=== PATIENT | female | born 1945 | race Caucasian/White ===

== ENCOUNTER 2016-04-25 03:55 | Emergency (ER) | payer BC, OTHER ==
--- NOTE | 2016-04-25 04:29 | EDPHY ---
H & P Stated Complaint: cough and chills since 2/3 HPI/ROS: HPI CHIEF COMPLAINT: Cough, sore throat, chills HISTORY OF PRESENT ILLNESS: This patient very pleasant 70-year-old female, significant past medical history for depression and anxiety, she does not smoke , she presents to the emergency room at 4 o'clock in the morning for a cough that started yesterday. Patient tells me she has had somewhat of her sore throat she has had a cough that is bronchitic in nature. She denies productivity of the cough. She has had had some chills but no recorded fever. She denies any diarrhea, nausea or vomiting. Denies chest pain. She tells me that she could not sleep last night due to ongoing cough. She does not feel acutely short of breath. She has no history of coronary artery disease or pulmonary embolism. No history of underlying lung disease. Past Medical History: Anxiety and depression, hypertension Social History: Denies use of drugs alcohol tobacco products Family History: Noncontributory ROS REVIEW OF SYSTEMS: A comprehensive 10 point review of systems is otherwise negative aside from elements mentioned in the history of present illness. Exam Constitutional triage nursing summary reviewed, vital signs reviewed, awake/ alert. Eyes normal conjunctivae and sclera, EOMI, PERRLA. HENT normal inspection, atraumatic, moist mucus membranes, no epistaxis, neck supple/ no meningismus, no raccoon eyes. Respiratory clear to auscultation bilaterally, however when she coughs she has a faint wheezing and bronchitic sounding cough, no crackles. Cardiovascular rate normal, regular rhythm, no murmur, no edema, distal pulses normal. Gastrointestinal soft, non-tender, no rebound, no guarding, normal bowel sounds, no distension, no pulsatile mass. Genitourinary no CVA tenderness. Musculoskeletal no midline vertebral tenderness, full range of motion, no calf swelling, no tenderness of extremities, no meningismus, good pulses, neurovascularly intact. Skin pink, warm, & dry, no rash, skin atraumatic. Neurologic awake, alert and oriented x 3, AAOx3, moves all 4 extremities equally, motor intact, sensory intact, CN II-XII intact, normal cerebellar, normal vision, normal speech. Psychiatric normal mood/affect. Heme/Lymph/Immune no lymphadenopathy. Differential Diagnosis: This includes but is not limited to in a particular order, bronchitis, upper respiratory tract infection, viral pneumonia, bacterial pneumonia, CHF Medical Decision Making: This patient will have a two view chest x-ray to rule out pneumonia should be given a DuoNeb breathing treatment here will re- evaluate. She appears very well nontoxic noted to not be hypoxic or febrile. Re-evaluation: 0501: re-evaluation at this time currently this patient is getting a DuoNeb breathing treatment. ED x-ray chest two view: this is negative for acute cardiopulmonary disease specifically I do not appreciate pneumothorax, focal pneumonia. There is some airway thickening. Image interpreted by myself. This patient will benefit from albuterol inhaler, steroids prednisone for 5 days and cough medicine guaifenesin decongestion. She appears to have bronchitis. There is no pneumonia on her chest x-ray. She appears well nontoxic it is noted she is not hypoxic or afebrile. She feels much better after a DuoNeb breathing treatment. 0530: patient is resting comfortably clear breath sounds after DuoNeb breathing treatment she does feel better. X-ray reviewed shows no pneumonia. Prescription for azithromycin, prednisone, albuterol and guaifenesin she does understand return to the ER she develops any worsening symptoms questions or concerns. Source: Patient - Personal History Current Tetanus/Diphtheria Vaccine: Unsure Current Tetanus Diphtheria and Acellular Pertussis (TDAP): Unsure - Medical/Surgical History Hx Asthma: No Hx Chronic Respiratory Disease: No Hx Diabetes: No Hx Cardiac Disease: No Hx Renal Disease: No Hx Cirrhosis: No Hx Alcoholism: No Hx HIV/AIDS: No Hx Splenectomy or Spleen Trauma: No Other PMH: depression, anxiety - Social History Smoking Status: Former smoker Constitutional: Initial Vital Signs Temperature (C) 36.8 C 04/25/16 03:57 Heart Rate 117 H 04/25/16 03:57 Blood Pressure 143/89 H 04/25/16 03:57 O2 Sat (%) 97 04/25/16 03:57 Allergies/Adverse Reactions: Sulfa (Sulfonamide Antibiotics) Allergy (Verified 04/25/16 04:03) Home Medications: Medication Instructions Recorded AZITHROMYCIN [Z-PACK] 250 mg PO DAILY #6 tab 04/25/16 Albuterol [Proventil Inhaler HFA 1 - 2 puffs IH Q4H #1 mdi 04/25/16 (*)] CLONAZEPAM 04/25/16 Carvedilol 04/25/16 Guaifenesin [Guaifenesin ER] 600 mg PO BID #14 tab.er.12h 04/25/16 Paxil 04/25/16 predniSONE 60 mg PO DAILY #15 tab 04/25/16 Medical Decision Making - Data Points Medications Given: Discontinued Medications Albuterol/Ipratropium (Duoneb) 3 ml IH EDNOW ONE Stop: 04/25/16 04:34 Last Admin: 04/25/16 05:01 Dose: 3 ml Departure - Departure Disposition: Home, Routine, Self-Care Clinical Impression: Acute bronchitis Qualifiers: Bronchitis organism: other organism Qualifier Code: (J20.8) Acute bronchitis due to other specified organisms Condition: Good Instructions: Acute Bronchitis (ED) Additional Instructions: 1. Stay well-hydrated drink lots of fluids 2. return emergency room if you have worsening trouble breathing questions or concerns. 3. Please take her albuterol 2 puffs every 2-4 hours as needed. 4.Take prednisone for the next 5 days. Referrals: Gutierrez Whitehead MD [Primary Care Provider] - As per Instructions Prescriptions: Guaifenesin [Guaifenesin ER] 600 mg PO BID #14 tab.er.12h Albuterol [Proventil Inhaler HFA (*)] 1 - 2 puffs IH Q4H #1 mdi AZITHROMYCIN [Z-PACK] 250 mg PO DAILY #6 tab predniSONE 60 mg PO DAILY #15 tab
[2016-04-25] MEDS ORDERED: IPRATROPIUM/ALBUTEROL 3 ML DEYVIAL IH ONE (04:33)
[2016-04-25] MEDS ORDERED: predniSONE 20 MG TAB PO ONE (05:31)
[2016-04-25 06:09] VITALS: BP 142/70; PULSE 114; RESP 18; TEMP 99.3; O2SAT 91
--- NOTE | 2016-04-25 08:07 | DX ---
Chest, PA and Lateral History: Cough and congestion Comparison: March 03, 2005 Findings: Perihilar bronchial wall thickening and mildly prominent lung volumes, without infiltrate o r consolidation, are consistent with airways disease. Heart size is normal. There is new tortuosity o f the descending thoracic aorta. I suspect there is a small stable hiatal hernia present. There is no adenopathy or mass lesion. There is no pleural effusion or pneumothorax. Bones are unremarkable for age. Impression: 1. Airways disease. No pneumonia. 2. New thoracic aortic tortuosity.? Chronic hypertension
== END 2016-04-25 06:09 | disposition home or self-care (01) ==
DX: J20.8 Acute bronchitis due to other specified organisms (principal); I10 Essential (primary) hypertension; Z87.891 Personal history of nicotine dependence

== ENCOUNTER 2016-07-01 06:31 | Inpatient (IN) | payer BC, OTHER ==
--- NOTE | 2016-07-01 07:17 | EDPHY ---
H & P Stated Complaint: SOB, bronchitis not improving Source: Patient Exam Limitations: No limitations - Personal History Current Tetanus Diphtheria and Acellular Pertussis (TDAP): Unsure - Medical/Surgical History Hx Asthma: No Hx Chronic Respiratory Disease: No Hx Diabetes: No Hx Cardiac Disease: No Hx Renal Disease: No Hx Cirrhosis: No Hx Alcoholism: No Hx HIV/AIDS: No Hx Splenectomy or Spleen Trauma: No Other PMH: depression, anxiety - Social History Smoking Status: Former smoker Time Seen by Provider: 07/01/16 06:43 HPI/ROS: HPI The patient presents with shortness of breath which has been present for the last 1 month which is worse with exertion. She was diagnosed with bronchitis about 2 months ago and was sick for about 3 weeks with a cough. Her symptoms improved, however for the last 1 month she has felt short of breath, she experiences this when she goes up a flight of stairs or when she changes her clothes. She does not have any dyspnea when she walks. This is occasionally associated with a cough. She has not had any chest pain. She was seen by her primary care doctor last week and her shortness of breath was thought to be due to deconditioning, she was instructed to exercise more and is being evaluated for home oxygen. She does not have any orthopnea, PND. She has mild lower extremity edema REVIEW OF SYSTEMS Constitutional: No fever, no chills. Eyes: No discharge. ENT: No sore throat. Cardiovascular: No chest pain, no palpitations. Respiratory: See HPI Gastrointestinal: No abdominal pain, no vomiting. Genitourinary: No hematuria. Musculoskeletal: No back pain. Skin: No rashes. Neurological: No headache. PMHx: Recent bronchitis, some sort of valvular heart disease in 2004, possibly mitral valve regurgitation, which improved on its own, though required 5 day ICU stay Soc Hx: Nonsmoker PHYSICAL General Appearance: Alert, no distress Eyes: Pupils equal and round no pallor or injection ENT, Mouth: Mucous membranes moist Respiratory: There are no retractions, lungs are clear to auscultation Cardiovascular: Regular rate and rhythm Gastrointestinal: Abdomen is soft and non-tender, no masses, bowel sounds normal Neurological: A&O, moves all extremities Skin: Warm and dry, no rashes Musculoskeletal: Neck is supple non tender Extremities: symmetrical, full range of motion, trace lower extremity edema Psychiatric: Patient is oriented X 3, there is no agitation (Riguzzi,Elvia) Constitutional: Initial Vital Signs Temperature (C) 36.8 C 07/01/16 06:34 Heart Rate 106 H 07/01/16 06:34 Respiratory Rate 20 07/01/16 06:34 Blood Pressure 124/82 H 07/01/16 06:34 O2 Sat (%) 92 07/01/16 06:34 O2 Delivery Mode Room Air O2 (L/minute) 2 Allergies/Adverse Reactions: Gadolinium-Containing Contrast Medi Allergy (Verified 07/01/16 08:54) Sulfa (Sulfonamide Antibiotics) Allergy (Verified 07/01/16 06:34) Home Medications: Medication Instructions Recorded PARoxetine HCL [Paxil 20mg (*)] 50 mg PO DAILY 07/01/16 clonazePAM [Klonopin (*)] 0.5 mg PO BID PRN 07/01/16 Medical Decision Making - Diagnostics Imaging: Imaging Impressions Chest X-Ray 07/01/16 07:08 Impression: Peribronchial thickening in the could be related to fluid overload or bronchitis. Chest/Thorax CTA 07/01/16 08:17 Impression: 1. No visible pulmonary embolus. 2. Small pleural effusions with interlobular septal thickening and basilar ground-glass opacities, most likely related to pulmonary edema/CHF. Superimposed pneumonia is considered unlikely. Recommend follow up CT in 3 months to document resolution. 3. Aneurysmal dilatation of the ascending aorta without dissection. 4. 2 cm exophytic left thyroid nodule. Thyroid ultrasound is recommended for further evaluation. 5. Nonvisualization of the left vertebral artery, suspicious for occlusion. 6. Mildly prominent right hilar lymph nodes, which may be reactive. Attention is recommended on follow up. 7. Nonobstructing 4 mm left renal stone. 8. Additional findings as above. Findings discussed with Kamryn Zazueta on July 01, 2016 at 10:34 a.m. ED Course/Re-evaluation: 8:20 a.m.- The patient has been stable. Chest x-ray shows bronchitis versus mild fluid overload. Her labs demonstrate elevated BNP as well as elevated D-dimer. I have ordered a CT scan of her chest and will consult with her cardiology group. On further evaluation, the patient says that she used to be on medication for CHF but took herself off of it several years ago and never had symptoms so did not re-initiate medications. 8:40 a.m.- I have signed out the case to the oncoming provider Dr. Zazueta pending CT results and cardiology consultation. (Elvia Guajardo) Differential Diagnosis: This is a 70-year-old female with history of recent bronchitis, remote history of cardiomyopathy who presents with dyspnea on exertion for the last 1 month. On exam, she is well-appearing, she has normal vital signs, her lungs sound clear, she does not have a murmur. Differential diagnosis includes pneumonia, pleural effusion, CHF, pulmonary embolism. (Elvia Guajardo) Care Turn Over: I assumed care of this patient from Dr. Rebecca cai at 8:30 a.m.. I interviewed and examined the patient. She reports a 3-4 week history of progressively worsening dyspnea on exertion. She lives in an apartment that has 3 flights up. Month ago she could run up the stairs, she now takes about 20 minutes to go from bottom to top. She has not had chest pain. She was diagnosed with bronchitis a couple of months ago and was treated with a nebulizer, cough medication, and short course of steroids. She thought that she had recovered but then developed shortness of breath. She saw her primary care physician, Dr. Gutierrez Whitehead, last week and was advised to increase her activity level with the thought that she might be deconditioned from her recent bronchitis. She does have a history of mitral valve regurgitation that was reportedly diagnosed during a hospitalization at [facility]. She has seen Dr. Lee Harrison in the past. Additional history that has been provided by [facility] Is that her hospitalization at [facility] was apparently for nonischemic cardiomyopathy. At 1 point she was taking Cozaar, Aldactone, and carvedilol. She tells me that she has not taken Cozaar or Aldactone for a few years. She was taking carvedilol, once daily, up until about a month ago, when she ran out and was unable to refill the prescription. She thinks that her worsening shortness of breath dates from the time that she discontinued her carvedilol. At the time that I assumed her care a CT angiogram of her chest is pending, her D-dimer is elevated, as is BNP. She reports of contrast allergy to the nursing staff. Apparently she had an urticarial reaction during his CT scan in the past. She will be premedicated. Troponin is normal. CT angiogram of the chest was performed and reported to me by Dr. Johnston. There is no PE seen. There are bilateral pleural effusions. There is some incidental in findings including nonvisualization of the left vertebral artery, 4.4 cm ascending aortic aneurysm, no dissection. Please see formal CT report. Echocardiogram will be performed in the emergency department. Parish Voss from [facility] plans to check in with the patient once this exam is completed. I spoke with Parish Voss from [facility]. Preliminary review of her echocardiogram shows that her ejection fraction is markedly diminished. Awaiting formal report. Hospitalization is recommended. She will be admitted to the hospitalist service for treatment of heart failure, resumption of medications, and additional treatment and evaluation as needed. (Kamryn Zazueta ) - Data Points Laboratory Results: Laboratory Results 07/01/16 07:30 07/01/16 07:30 07/01/16 07/01/16 07/01/16 07:30 07:30 07:30 WBC RBC Hgb Hct MCV MCH MCHC RDW Plt Count MPV Neut % (Auto) Lymph % (Auto) Tama % (Auto) Eos % (Auto) Baso % (Auto) Nucleat RBC Rel Count Absolute Neuts (auto) Absolute Lymphs (auto) Absolute Monos (auto) Absolute Eos (auto) Absolute Basos (auto) Absolute Nucleated RBC Immature Gran % Immature Gran # D-Dimer 1.19 ug/mLFEU H ug/mLFEU (0.00-0.50) Sodium 143 mEq/L mEq/L (134-144) Potassium 3.9 mEq/L mEq/L (3.5-5.2) Chloride 110 mEq/L mEq/L (97-110) Carbon Dioxide 23 mEq/l mEq/l (22-31) Anion Gap 10 mEq/L mEq/L (8-16) BUN 23 mg/dL mg/dL (7-23) Creatinine 0.8 mg/dL mg/dL (0.6-1.0) Estimated GFR > 60 Glucose 100 mg/dL mg/dL (70-100) Calcium 8.9 mg/dL mg/dL (8.5-10.4) Phosphorus Pending Magnesium Pending Troponin I 0.029 ng/mL ng/mL (0-0.034) NT-Pro-B Natriuret Pep 3190 pg/mL H pg/mL (0-125) 07/01/16 07:30 WBC 9.68 10^3/uL H 10^3/uL (3.80-9.50) RBC 4.20 10^6/uL 10^6/uL (4.18-5.33) Hgb 12.1 g/dL L g/dL (12.6-16.3) Hct 37.1 % L % (38.0-47.0) MCV 88.3 fL fL (81.5-99.8) MCH 28.8 pg pg (27.9-34.1) MCHC 32.6 g/dL g/dL (32.4-36.7) RDW 14.0 % % (11.5-15.2) Plt Count 270 10^3/uL 10^3/uL (150-400) MPV 10.8 fL fL (8.7-11.7) Neut % (Auto) 58.7 % % (39.3-74.2) Lymph % (Auto) 33.8 % % (15.0-45.0) Tama % (Auto) 5.4 % % (4.5-13.0) Eos % (Auto) 1.4 % % (0.6-7.6) Baso % (Auto) 0.4 % % (0.3-1.7) Nucleat RBC Rel Count 0.0 % % (0.0-0.2) Absolute Neuts (auto) 5.68 10^3/uL 10^3/uL (1.70-6.50) Absolute Lymphs (auto) 3.27 10^3/uL H 10^3/uL (1.00-3.00) Absolute Monos (auto) 0.52 10^3/uL 10^3/uL (0.30-0.80) Absolute Eos (auto) 0.14 10^3/uL 10^3/uL (0.03-0.40) Absolute Basos (auto) 0.04 10^3/uL 10^3/uL (0.02-0.10) Absolute Nucleated RBC 0.00 10^3/uL 10^3/uL (0-0.01) Immature Gran % 0.3 % % (0.0-1.1) Immature Gran # 0.03 10^3/uL 10^3/uL (0.00-0.10) D-Dimer Sodium Potassium Chloride Carbon Dioxide Anion Gap BUN Creatinine Estimated GFR Glucose Calcium Phosphorus Magnesium Troponin I NT-Pro-B Natriuret Pep Medications Given: Discontinued Medications Aspirin (Aspirin) 325 mg PO EDNOW ONE Stop: 07/01/16 11:51 Last Admin: 07/01/16 12:00 Dose: 325 mg Carvedilol (Coreg) 3.125 mg PO EDNOW ONE Stop: 07/01/16 11:49 Last Admin: 07/01/16 12:40 Dose: 3.125 mg Diphenhydramine HCl (Benadryl Injection) 25 mg IVP EDNOW ONE Stop: 07/01/16 09:00 Last Admin: 07/01/16 09:05 Dose: 25 mg Famotidine (Pepcid) 20 mg IVP EDNOW ONE Stop: 07/01/16 09:00 Last Admin: 07/01/16 09:05 Dose: 20 mg Furosemide (Lasix Injection) 40 mg IVP EDNOW ONE Stop: 07/01/16 11:49 Last Admin: 07/01/16 12:00 Dose: 40 mg Methylprednisolone Sodium Succinate (Solu-Medrol) 125 mg IVP EDNOW ONE Stop: 07/01/16 09:00 Last Admin: 07/01/16 09:05 Dose: 125 mg Potassium Chloride (Klor-Con) 20 meq PO ONCE ONE Stop: 07/01/16 11:52 Last Admin: 07/01/16 13:39 Dose: 20 meq Departure - Departure Disposition: [facility] Inpatient Acute Clinical Impression: Congestive heart failure Qualifiers: Congestive heart failure type: unspecified congestive heart failure type Congestive heart failure chronicity: unspecified congestive heart failure chronicity Qualified Code(s): I50.9 - Heart failure, unspecified Condition: Good
[2016-07-01 07:41] LABS: % IMMATURE GRANULYOCYTES 0.3 % (0.0-1.1); ABSOLUTE IMMATURE GRANULOCYTES 0.03 10^3/uL (0.00-0.10); ADD DIFF? NO; ADD MORPH? NO; ADD SCAN? NO; ATYPICAL LYMPHOCYTE FLAG 10 (0-99); FRAGMENT RBC FLAG 0 (0-99); HEMATOCRIT 37.1 % (38.0-47.0); HEMOGLOBIN 12.1 g/dL (12.6-16.3); LEFT SHIFT FLG 0 (0-99); LIPEMIA HEMOLYSIS FLAG 80 (0-99); MEAN CELL HEMOGLOBIN 28.8 pg (27.9-34.1); MEAN CELL HEMOGLOBIN CONCENTR. 32.6 g/dL (32.4-36.7); MEAN CELL VOLUME 88.3 fL (81.5-99.8); MEAN PLATELET VOLUME 10.8 fL (8.7-11.7); PLATELET CLUMPS FLAG 0 (0-99); PLATELET COUNT 270 10^3/uL (150-400)
[2016-07-01 08:00] LABS: ANION GAP 10 mEq/L (8-16); CALCIUM 8.9 mg/dL (8.5-10.4); CARBON DIOXIDE 23 mEq/l (22-31); CHLORIDE 110 mEq/L (97-110); CREATININE 0.8 mg/dL (0.6-1.0); GLOMERULAR FILTRATION RATE > 60; GLUCOSE 100 mg/dL (70-100); POTASSIUM 3.9 mEq/L (3.5-5.2); SODIUM 143 mEq/L (134-144)
[2016-07-01 08:13] LABS: TROPONIN I 0.029 ng/mL (0-0.034)
[2016-07-01] MEDS ORDERED: IOPAMIDOL (ISOVUE 370) 100 ML BTL IV ONE (08:31)
[2016-07-01] MEDS ORDERED: FAMOTIDINE 20 MG/2 ML SDV IVP ONE (08:59)
[2016-07-01] MEDS ORDERED: methylPREDNISolone SOD SUCC 125 MG/2 ML VIAL IVP ONE (08:59)
--- NOTE | 2016-07-01 09:05 | CPEKG ---
Heart Rate: 96 RR Interval: 625 P-R Interval: 152 QRSD Interval: 92 QT Interval: 396 QTC Interval: 501 P [place]: 48 QRS [place]: 27 T Wave [place]: 81 EKG Severity - ABNORMAL ECG - EKG Impression: SINUS RHYTHM EKG Impression: ATRIAL PREMATURE COMPLEX EKG Impression: PROBABLE LEFT ATRIAL ABNORMALITY EKG Impression: PROBABLE LEFT VENTRICULAR HYPERTROPHY EKG Impression: BORDERLINE PROLONGED QT INTERVAL Electronically Signed By: Kamryn Zazueta 01-Jul-2016 15:20:00
--- NOTE | 2016-07-01 11:45 | ECHO ---
[id number] + + [address] : : [place] [address] : : [phone] + + Adult Echocardiographic Report + -------+ :Name: REID NGUYEN LStudy Date: 07/01/2016 10:55 AM : : Hospital Admission Number: [id number] Locat ion: ER: :: 1945 Gender: Female Height: 69 in : :Age: 70 yrs Race: WH Weight: 173 l b : :Reason For Study: New REYNA/h/o mitral regurgitation : : BSA: 1.9 mete rs2 : + -------+ MMode/2D Measurements \T\ Calculations LVIDd: 6.0 cm EDV(Teich): 180.3 ml MV Diam: 3.5 cm Ao root diam: 3.5 cm LA dimension: 4.5 cm LVOT diam: 2.1 cmLVLd ap4: 8.5 cm SV(MOD-sp4): LVOT area: EDV(MOD-sp4): 23.0 ml 3.5 cm2 92.0 ml LVLs ap4: 7.3 cm ESV(MOD-sp4): 69.0 ml EF(MOD-sp4): 25.0 % Normal Measurement Values: + + :LVIDd (3.5-5.7cm) IVSd (0.6-1.1cm) LVPWd (0.6-1.1cm) Aortic Root (2.0-3.7cm)Left Atrium (1.5-4.0cm): :LV Vol(d) (76-115ml) LV Vol(s) (29-48ml) Ejec Fraction (50-65%)PV Zana (0.6- 1.2m/s) TV Zana (0.4-1.0m/s) : :MV E Zana (0.8-1.0m/s)MV A Zana (0.3-1.0m/s)LVOT Zana (0.7-1.2m/s) Asc Ao Zana ( 0.9-1.8m/s) : + + Doppler Measurements \T\ Calculations MV E max zana: MV V2 max: Ao V2 max: LV V1 max: 155.0 cm/sec 145.0 cm/sec 120.0 cm/sec 67.7 cm/sec MV A max zana: MV max P.4 mmHg Ao max P.8 mmHgLV V1 max P.0 cm/sec MV V2 mean: Ao mean P.8 mmHg MV E/A: 1.4 104.0 cm/sec 3.0 mmHg LV V1 mean PG: MV mean P.0 mmHgAo V2 mean: 1.0 mmHg MV V2 VTI: 28.9 cm 83.9 cm/sec LV V1 mean: MV area (1 diam): Ao V2 VTI: 20.6 cm 44.5 cm/sec 9.6 cm2 KAITLIN(I,D): 2.4 cm2 LV V1 VTI: 14.1 cm MVA(VTI): 1.7 cm2 KAITLIN(V,D): 2.0 cm2 MV Flow area(1diam): 9.6 cm2 MR max zana: MR(RF 1 diam): SV(MV 1 diam): RF(MV,Ao)(1 diam): 537.0 cm/sec 15.2 % 278.1 ml 0.29 MR max PG: SI(MV 1 diam): RF(MV,LVOT) 115.3 mmHg 143.2 ml/m2 (1diam): 0.82 SV(LVOT): 48.8 ml Left Ventricle The left ventricle is mildly dilated. There is normal left ventricular wall thickness. There is Doppler evidence for diastolic dysfunction. Ejection Fraction = 30-35%%. Septal motion is consistent with conduction abnormality. There is moderate to severe global hypokinesis of the left ventricle. Right Ventricle The right ventricle is normal in size and function. Atria The left atrium is moderately dilated. Right atrial size is normal. The interatrial septum is intact with no evidence for an atrial septal defect. Mitral Valve There is mild mitral annular calcification. There is no evidence of mitral valve prolapse. There is no mitral valve stenosis. There is moderate to severe mitral regurgitation. Tricuspid Valve Normal tricuspid valve. There is trace tricuspid regurgitation. Aortic Valve The aortic valve opens well. There is no aortic stenosis. Trace aortic regurgitation. Pulmonic Valve The pulmonic valve is not well visualized. There is no pulmonic valvular regurgitation. Great Vessels The aortic root is normal size. Pericardium/Pleural Trivial anterior pericardial effusion. Conclusion A complete two-dimensional transthoracic echocardiogram was performed (2D, M-mode, Doppler and color flow Doppler). Compared to the previous echo of 10/01, the EF has decreased significantly. There is Doppler evidence for diastolic dysfunction. There is moderate to severe global hypokinesis of the left ventricle. The left ventricle is mildly dilated. Septal motion is consistent with conduction abnormality. The left atrium is moderately dilated. There is mild mitral annular calcification. There is moderate to severe mitral regurgitation. There is trace tricuspid regurgitation. Trace aortic regurgitation. Trivial anterior pericardial effusion Ejection Fraction = 30-35%%. Final Reading Physician: Alejandro Diaz signed on 07/01/2016 11:44 AM Ordering Physician: STAN PARISH Performed By: Maria Isabel Gutierrez RDCS
[2016-07-01] MEDS ORDERED: FUROSEMIDE 40 MG/4 ML VIAL IVP ONE (11:48)
[2016-07-01] MEDS ORDERED: CARVEDILOL 3.125 MG TAB PO ONE (11:48)
[2016-07-01] MEDS ORDERED: ASPIRIN 325 MG TAB PO ONE (11:50)
[2016-07-01] MEDS ORDERED: POTASSIUM CL 20 MEQ TAB PO ONE (11:51)
[2016-07-01] MEDS ORDERED: FUROSEMIDE 40 MG/4 ML VIAL ONE (11:53)
[2016-07-01] MEDS ORDERED: ASPIRIN 325 MG TAB ONE (11:53)
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
[2016-07-01] MEDS ORDERED: ALBUTEROL 3 ML DEYVIAL IH PRN (14:23)
[2016-07-01] MEDS ORDERED: PROTOCOL POTASSIUM 1 DOSE MISC PRN (14:25)
[2016-07-01] MEDS ORDERED: PROTOCOL K PHOSPHATE 1 DOSE IV PRN (14:25)
[2016-07-01] MEDS ORDERED: PROTOCOL MAGNESIUM 1 DOSE IV PRN (14:25)
[2016-07-01] MEDS: FUROSEMIDE 20 MG/2 ML VIAL IVP SCH (15:47)
[2016-07-01] MEDS: LISINOPRIL 5 MG TAB PO SCH (15:47)
[2016-07-01] MEDS: IPRATROPIUM/ALBUTEROL 3 ML DEYVIAL IH SCH (16:34)
[2016-07-01] MEDS: CARVEDILOL 6.25 MG TAB PO SCH (18:05)
[2016-07-01] MEDS: PARoxetine HCL 20 MG TAB PO SCH ×2 (18:05→18:17)
[2016-07-01] MEDS: clonazePAM 0.5 MG TAB PO PRN (18:05)
[2016-07-01 20:29] LABS: POTASSIUM 4.7 mEq/L (3.5-5.2)
[2016-07-01 20:44] LABS: TROPONIN I 0.015 ng/mL (0-0.034)
[2016-07-02] MEDS: IPRATROPIUM/ALBUTEROL 3 ML DEYVIAL IH SCH ×3 (00:51→11:28)
[2016-07-02 04:45] LABS: ALANINE AMINOTRANSFERASE 24 IU/L (9-52); ALBUMIN 3.6 g/dL (3.5-5.0); ALKALINE PHOSPHATASE 63 IU/L (38-126); ANION GAP 10 mEq/L (8-16); ASPARTATE AMINOTRANSFERASE 19 IU/L (14-46); BILIRUBIN,TOTAL 0.4 mg/dL (0.1-1.4); CALCIUM 9.4 mg/dL (8.5-10.4); CARBON DIOXIDE 25 mEq/l (22-31); CHLORIDE 107 mEq/L (97-110); CHOLESTEROL 152 mg/dL (140-220); CHOLESTEROL/HDL RATIO 2.98 RATIO (1.00-4.44); GLOMERULAR FILTRATION RATE 55; GLUCOSE 147 mg/dL (70-100); HIGH DENSITY LIPOPROTEIN 51 mg/dL (40-85); LDL/HDL RATIO 1.65 RATIO (1.00-3.22); LOW DENSITY LIPOPROTEIN 84 mg/dL (80-100); MAGNESIUM 2.1 mg/dL (1.6-2.3); NON-HIGH DENSITY LIPOPROTEIN 101 mg/dL (90-129); POTASSIUM 4.1 mEq/L (3.5-5.2); SODIUM 142 mEq/L (134-144); TOTAL PROTEIN 6.4 g/dL (6.3-8.2); TRIGLYCERIDE 87 mg/dL (35-135); VERY LOW DENSITY LIPOPROTEINS 17 mg/dL (8-25)
[2016-07-02] MEDS: ASPIRIN 81 MG CHEWABLE TAB PO SCH (08:32)
[2016-07-02] MEDS: PARoxetine HCL 20 MG TAB PO SCH (08:32)
[2016-07-02] MEDS: LISINOPRIL 5 MG TAB PO SCH (08:32)
[2016-07-02] MEDS: CARVEDILOL 6.25 MG TAB PO SCH ×3 (08:35→18:23)
[2016-07-02] MEDS: FUROSEMIDE 20 MG/2 ML VIAL IVP SCH ×2 (08:35→15:08)
--- NOTE | 2016-07-02 08:52 | CPEKG ---
Heart Rate: 99 RR Interval: 606 P-R Interval: 148 QRSD Interval: 96 QT Interval: 376 QTC Interval: 483 P Andale: 66 QRS Andale: 39 T Wave Andale: 140 EKG Severity - ABNORMAL ECG - EKG Impression: SINUS TACHYCARDIA EKG Impression: VENTRICULAR PREMATURE COMPLEX EKG Impression: LEFT ATRIAL ABNORMALITY EKG Impression: LVH WITH SECONDARY REPOLARIZATION ABNORMALITY Electronically Signed By: Jabier Pablo 02-Jul-2016 15:10:56
[2016-07-02] MEDS ORDERED: REGADENOSON 0.4 MG/5 ML SYR IVP ONE (09:42)
--- NOTE | 2016-07-02 11:01 | HOSPPROG ---
Hospitalist Progress Note Assessment/Plan: Acute hypoxemic respiratory failure secondary to acute on chronic combined systolic / diastolic heart failure - Now >92 on RA. EF 30-35% with global LV hypokinesis. Mary Jane this am, results pending -Continue IV Lasix, likely change to oral tomorrow as BUN on the rise -Follow I&O's, daily weights, daily BMP -Cont ASA, BB, VIET Mitral regurgitation - cards following Thyroid nodule - TSH low, but nl T3, T4. Discussed with pt, needs outpt u/s. Depression / Anxiety - cont outpt meds TBI with baseline cognitive deficit Full code Dispo - cont inpt for ongoing diuresis Subjective: breathing is improved. continues to endorse orthopnea. reports 20 lb weight gain over past 12 months. No CP. Objective: Vital Signs Temp Pulse Resp BP Pulse Ox 36.6 C 96 17 116/67 94 07/02/16 08:00 07/02/16 08:00 07/02/16 08:00 07/02/16 08:00 07/02/16 08:00 Laboratory Results 07/02/16 04:10 07/01/16 07/02/16 07/03/16 05:59 05:59 05:59 Intake Total 1100 Output Total 925 Balance 175 - Physical Exam Constitutional: no apparent distress Eyes: PERRL Ears, Nose, Mouth, Throat: moist mucous membranes Cardiovascular: regular rate and rhythym, JVD (4-6 cm JVD, +hepatojugular reflex ) Respiratory: no respiratory distress, clear to auscultation Gastrointestinal: normoactive bowel sounds, soft, non-tender abdomen Skin: warm Musculoskeletal: full muscle strength Neurologic: AAOx3 Psychiatric: interacting appropriately, anxious ICD10 Worksheet Patient Problems: Problems Problem Status Onset Congestive heart failure Acute
[2016-07-02] MEDS: clonazePAM 0.5 MG TAB PO PRN (16:15)
[2016-07-02] MEDS ORDERED: IPRATROPIUM/ALBUTEROL 3 ML DEYVIAL IH PRN (16:56)
[2016-07-03] MEDS: clonazePAM 0.5 MG TAB PO PRN ×2 (00:35→15:11)
[2016-07-03 05:05] LABS: ANION GAP 9 mEq/L (8-16); CALCIUM 8.7 mg/dL (8.5-10.4); CARBON DIOXIDE 25 mEq/l (22-31); CHLORIDE 107 mEq/L (97-110); CREATININE 0.9 mg/dL (0.6-1.0); GLOMERULAR FILTRATION RATE > 60; GLUCOSE 83 mg/dL (70-100); MAGNESIUM 2.1 mg/dL (1.6-2.3); POTASSIUM 4.4 mEq/L (3.5-5.2); SODIUM 141 mEq/L (134-144)
[2016-07-03] MEDS: CARVEDILOL 6.25 MG TAB PO SCH ×2 (09:26→18:16)
[2016-07-03] MEDS: ASPIRIN 81 MG CHEWABLE TAB PO SCH (09:27)
[2016-07-03] MEDS: LISINOPRIL 5 MG TAB PO SCH (09:27)
[2016-07-03] MEDS: PARoxetine HCL 20 MG TAB PO SCH (09:27)
[2016-07-03] MEDS: FUROSEMIDE 20 MG/2 ML VIAL IVP SCH ×2 (09:27→16:04)
--- NOTE | 2016-07-03 09:59 | HOSPPROG ---
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 EF 30-35% with global LV hypokinesis. BNP trending down, clinically volume status improved, but not much change in weight or I&O's. -Continue IV Lasix, add Diamox per cards -Follow I&O's, daily weights, daily BMP -Cont ASA, BB, VIET -plan for home O2, at least nocturnally Abnormal nuclear stress test - discussed case with cardiology team, no angiogram indicated unless she develops symptoms c/w ACS. Mitral regurgitation - cards following Thyroid nodule - TSH low, but nl T3, T4. Discussed with pt, needs outpt u/s. Depression / Anxiety - cont outpt meds TBI with baseline cognitive deficit Full code Dispo - cont inpt for ongoing diuresis, PT/OT evals today Subjective: Pt feels better, still feels puffy in her hands and abdomen. No CP or SOB at rest. Still a bit orthopneic, though improved. Objective: Vital Signs Temp Pulse Resp BP Pulse Ox 36.5 C 85 20 111/70 95 07/03/16 07:43 07/03/16 09:26 07/03/16 07:43 07/03/16 07:43 07/03/16 07:43 Laboratory Results 07/03/16 03:54 07/02/16 07/03/16 07/04/16 05:59 05:59 05:59 Intake Total 1100 1200 Output Total 925 1425 Balance 175 -225 - Physical Exam Constitutional: no apparent distress Eyes: PERRL Ears, Nose, Mouth, Throat: moist mucous membranes Cardiovascular: regular rate and rhythym Respiratory: no respiratory distress, clear to auscultation Gastrointestinal: normoactive bowel sounds, soft, non-tender abdomen Skin: warm Musculoskeletal: full muscle strength Neurologic: AAOx3 Psychiatric: interacting appropriately, anxious ICD10 Worksheet Patient Problems: Problems Problem Status Onset Congestive heart failure Acute
--- NOTE | 2016-07-03 10:14 | PDCARPN ---
Cardiology Progress Note Chief Complaint: acute sCHF Assessment/Plan: Assessment: 70-y/o F with PMH NICM with EF 25-30%, functional severe MR 2007, subsequent normalization of EF, former tobacco use, PTSD, TBI, PHTN in setting of NICM, p/ w worsening shortness of breath for 1 month prior to admission. Approximately 3 weeks ago, she also had concomitant diagnosis of bronchitis and was started on treatment with her PCP. Right before admission, she started to develop PND/ orthopnea and could not lay supine and so presented to ED for further evaluation. Additionally, she ran out of her cardiac meds 1 month ago (Coreg, Aldactone, Losartan). #. acute systolic CHF: likely related to bronchitis and running out of meds echo with EF 30-35% with mod-severe MR CXR/CTA suggestive of vol O/L another day of IV lasix and likely transition to oral Demadex in AM (20 mg daily) #. abnormal MPI: MPI from this admission shows mild lateral ischemia Dr. Yost reviewed with Dr. La normal cors in 2007 deferring invasive testing as clinical picture is less suggestive of ACS as precipitant of current presentation #. recent bronchitis: may still be playing a role #. hypoxia: improved with supplemental O2 may need supplemental O2 on discharge but will try to further diurese her and then RA challenge prior to discharge Plan: IV lasix and then transition to oral Demadex in AM 07/03/16 10:05 Objective: Vital Signs (8 Hrs) Temp Pulse Resp BP Pulse Ox 07/03/16 09:26 85 07/03/16 07:43 97.7 F 78 20 111/70 95 07/03/16 04:00 97.6 F 81 16 113/66 95 Intake/Output (24 Hrs) 07/02/16 07/03/16 07/04/16 05:59 05:59 05:59 Intake Total 1100 1200 Output Total 925 1425 Balance 175 -225 Intake: Oral (ml) 1100 1200 Output: Urine (ml) 925 1425 Toilet 925 1425 Other: Weight 79.5 kg 79.6 kg Number of Voids 3 Toilet 1 1 Number of Stools Toilet 1 Result Diagrams: 07/01/16 07:30 07/03/16 03:54 Cardiac Labs: Cardiac Lab Results (72 Hrs) 07/01/16 07/01/16 20:11 14:45 Troponin I 0.015 0.019 Laboratory Tests 07/03/16 03:54 NT-Pro-B Natriuret Pep 1010 H EKG: SR Echocardiogram: 07/01/16: EF 30-35, mod-severe global HK of LV, LV mild dilated, LA mod dil, mod- severe MR, trivial ant pericardial effusion - Physical Exam Constitutional: no apparent distress, No general pain Eyes: anicteric sclera Ears, Nose, Mouth, Throat: moist mucous membranes Cardiovascular: regular rate and rhythm, systolic murmur Respiratory: no crackles, no wheezes, reduced air movement Gastrointestinal: normoactive bowel sounds, no tenderness Genitourinary: no suprapubic tenderness, no CVAT Skin: no rashes, no abrasions Neurologic: AAOx3 Psychiatric: cooperative, interactive ICD10 Worksheet Patient Problems: Problems Problem Status Onset Congestive heart failure Acute
--- NOTE | 2016-07-03 11:12 | PDCARST ---
CAR Stress Test Results Type of Stress Test: Lexiscan stress test Indication: worsening CHF Description of Procedure: After informed consent was obtained, pt was established to ECG, BP, oximetry and HR monitoring. Pt was initially tried on a Kane protocol but due to worsening back pain, she was transitioned to walking Lexiscan. At b/l, BP is 124/78, HR 97, oximetry 90s% on supplemental O2 at 2 lpm. ECG showed SR. Lexiscan was infused with minimal side effects. No significant ECG changes. Impression: Uneventful Lexiscan infusion. Conclusion: Await nuclear imaging.
[2016-07-03] MEDS: CALCIUM CARBONATE 500 MG CHEWABLE TAB PO SCH ×2 (12:44→20:26)
[2016-07-04] MEDS: clonazePAM 0.5 MG TAB PO PRN ×2 (01:35→08:29)
[2016-07-04 05:39] LABS: ANION GAP 9 mEq/L (8-16); CARBON DIOXIDE 25 mEq/l (22-31); CHLORIDE 107 mEq/L (97-110); CREATININE 0.9 mg/dL (0.6-1.0); GLOMERULAR FILTRATION RATE > 60; GLUCOSE 88 mg/dL (70-100); POTASSIUM 4.2 mEq/L (3.5-5.2); SODIUM 141 mEq/L (134-144)
[2016-07-04] MEDS: CARVEDILOL 6.25 MG TAB PO SCH ×2 (08:22→17:35)
[2016-07-04] MEDS: LOSARTAN POTASSIUM 25 MG TAB PO SCH (08:22)
[2016-07-04] MEDS: CALCIUM CARBONATE 500 MG CHEWABLE TAB PO SCH ×2 (08:22→20:47)
[2016-07-04] MEDS: ASPIRIN 81 MG CHEWABLE TAB PO SCH (08:22)
[2016-07-04] MEDS: SPIRONOLACTONE 25 MG TAB PO SCH (08:22)
[2016-07-04] MEDS: FUROSEMIDE 20 MG/2 ML VIAL IVP SCH (08:22)
[2016-07-04] MEDS: PARoxetine HCL 20 MG TAB PO SCH ×2 (08:23→08:26)
--- NOTE | 2016-07-04 10:00 | SOAPPROG ---
JERONIMO Progress Note Assessment/Plan: Assessment: 70 y/o woman with acute on chronic systolic CHF with LVEF 35-40%, moderate to severe MR and medical non-compliance. She is nearing euvolemic state. No CP or angina. Long discussion with her about medical compliance. She is very interested in CHF clinic follow up and doing out-pt [facility] cardiac rehab in six weeks upon discharge. PLAN: 1)stop IV lasix 2)start Demadex 20mg PO qam. 3)home tommorrow if no recurrent 5-7 lbs weight gain. 4)f/u CHF-[facility] 5-7 days after discharge. 5)no change in Coreg, Losartan, and Aldactone dosing CHF teaching 25 minutes done with pt. 07/04/16 09:57 Subjective: Breathing better. Denies CP, palpitations, PND or syncope. Mild dizziness when walks hallways. Objective: Vital Signs Temp Pulse Resp BP Pulse Ox 36.6 C 78 16 102/55 L 92 07/04/16 08:00 07/04/16 08:00 07/04/16 08:00 07/04/16 08:00 07/04/16 08:00 Laboratory Results 07/04/16 04:30 07/03/16 07/04/16 07/05/16 05:59 05:59 05:59 Intake Total 1200 1000 Output Total 1425 800 Balance -225 200 Physical Exam - Physical Exam General Appearance: alert EENT: PERRL/EOMI Neck: non-tender Respiratory: lungs clear Cardiac/Chest: regular rate, rhythm, systolic murmur, No gallop, No JVD Peripheral Pulses: 2+: carotid (R), carotid (L), femoral (R), femoral (L), dorsalis-pedis (R), dorsalis-pedis (L) Abdomen: non-tender, No guarding Skin: warm/dry Extremities: No pedal edema Neuro/Psych: alert ICD10 Worksheet Patient Problems: Problems Problem Status Onset Congestive heart failure Acute
--- NOTE | 2016-07-04 11:47 | HOSPPROG ---
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 EF 30-35% with global LV hypokinesis. BNP trending down, clinically volume status improved, but not much change in weight or I&O's. -Change from IV Lasix to oral Torsemide per cards -Follow I&O's, daily weights, daily BMP -Cont ASA, BB, VIET -plan for home O2, at least nocturnally Abnormal nuclear stress test - discussed case with cardiology team, no angiogram indicated unless she develops symptoms c/w ACS. Mitral regurgitation - cards following Thyroid nodule - TSH low, but nl T3, T4. Discussed with pt, needs outpt u/s. Depression / Anxiety - cont outpt meds TBI with baseline cognitive deficit Full code Dispo - cont inpt for ongoing diuresis, PT/OT evals today, likely home in am Subjective: Pt feels better each day. breathing improved. denies CP or SOB. she is lying supine, denies orthopnea. Objective: Vital Signs Temp Pulse Resp BP Pulse Ox 36.5 C 76 14 97/54 L 90 L 07/04/16 11:29 07/04/16 11:29 07/04/16 11:29 07/04/16 11:29 07/04/16 11:29 Laboratory Results 07/04/16 04:30 07/03/16 07/04/16 07/05/16 05:59 05:59 05:59 Intake Total 1200 1000 Output Total 1425 800 900 Balance -225 200 -900 - Physical Exam Constitutional: no apparent distress Eyes: PERRL Ears, Nose, Mouth, Throat: moist mucous membranes Cardiovascular: regular rate and rhythym Respiratory: no respiratory distress, clear to auscultation Gastrointestinal: normoactive bowel sounds, soft, non-tender abdomen Skin: warm Musculoskeletal: full muscle strength Neurologic: AAOx3 Psychiatric: interacting appropriately ICD10 Worksheet Patient Problems: Problems Problem Status Onset Congestive heart failure Acute
[2016-07-04] MEDS: TORSEMIDE 20 MG TAB PO SCH (14:26)
[2016-07-05] MEDS: clonazePAM 0.5 MG TAB PO PRN ×2 (00:19→11:59)
[2016-07-05 04:09] VITALS: RESP 18
[2016-07-05 04:23] LABS: HEMATOCRIT 38.8 % (38.0-47.0); HEMOGLOBIN 12.7 g/dL (12.6-16.3); MEAN CELL HEMOGLOBIN 29.3 pg (27.9-34.1); MEAN CELL HEMOGLOBIN CONCENTR. 32.7 g/dL (32.4-36.7); MEAN CELL VOLUME 89.4 fL (81.5-99.8); RED BLOOD CELL COUNT 4.34 10^6/uL (4.18-5.33); RED CELL DISTRIBUTION WIDTH 13.7 % (11.5-15.2)
[2016-07-05 04:42] LABS: ANION GAP 11 mEq/L (8-16); CALCIUM 9.1 mg/dL (8.5-10.4); CARBON DIOXIDE 24 mEq/l (22-31); CHLORIDE 102 mEq/L (97-110); CREATININE 0.9 mg/dL (0.6-1.0); GLOMERULAR FILTRATION RATE > 60; GLUCOSE 110 mg/dL (70-100); POTASSIUM 4.1 mEq/L (3.5-5.2); SODIUM 137 mEq/L (134-144)
[2016-07-05 07:26] VITALS: BP 121/79; PULSE 79; TEMP 97.9; O2SAT 97
[2016-07-05] MEDS: CARVEDILOL 6.25 MG TAB PO SCH (08:07)
[2016-07-05] MEDS: ASPIRIN 81 MG CHEWABLE TAB PO SCH (08:14)
[2016-07-05] MEDS: PARoxetine HCL 20 MG TAB PO SCH (08:15)
[2016-07-05] MEDS: LOSARTAN POTASSIUM 25 MG TAB PO SCH (08:17)
[2016-07-05] MEDS: CALCIUM CARBONATE 500 MG CHEWABLE TAB PO SCH (08:17)
[2016-07-05] MEDS: SPIRONOLACTONE 25 MG TAB PO SCH (08:17)
--- NOTE | 2016-07-05 10:05 | SOAPPROG ---
JERONIMO Progress Note Assessment/Plan: Assessment: 70 y/o woman with acute on chronic systolic CHF with LVEF 35-40%, moderate to severe MR and medical non-compliance. She is nearing euvolemic state. No CP or angina. Long discussion with her about medical compliance. She is very interested in CHF clinic follow up and doing out-pt [facility] cardiac rehab in six weeks upon discharge. She appears euvolemic. REC: 1)change Losartan to 25mg PO qnoon. We may change Losartan to Entresto as outpt if follows up more reliably. 2)rest of meds without changes. 3)okay to discharge home today. 4)labs in five days (CBC, BMP and BNP level) and f/u [facility] in one week. Thanks. 07/05/16 10:02 Subjective: still a little dizzy with ambulation. Denies CP, palpitations, PND or cough. Ambulated in hallways without shortness of breath. Objective: Vital Signs Temp Pulse Resp BP Pulse Ox 36.6 C 79 18 121/79 H 97 07/05/16 07:25 07/05/16 07:25 07/05/16 07:25 07/05/16 07:25 07/05/16 07:25 Laboratory Results 07/05/16 03:22 07/05/16 03:22 07/04/16 07/05/16 07/06/16 05:59 05:59 05:59 Intake Total 1000 1040 240 Output Total 800 2040 400 Balance 200 -1000 -160 Physical Exam - Physical Exam General Appearance: alert EENT: PERRL/EOMI Neck: non-tender Respiratory: lungs clear Cardiac/Chest: regular rate, rhythm, systolic murmur (1/6 ELDON heard), No gallop , No JVD Peripheral Pulses: 2+: carotid (R), carotid (L), femoral (R), femoral (L), dorsalis-pedis (R), dorsalis-pedis (L) Abdomen: non-tender, soft, No guarding, No ascites Skin: warm/dry Extremities: No pedal edema Neuro/Psych: alert ICD10 Worksheet Patient Problems: Problems Problem Status Onset Congestive heart failure Acute
[2016-07-05] MEDS: TORSEMIDE 20 MG TAB PO SCH (10:55)
--- NOTE | 2016-07-05 19:39 | GDS ---
[f rep st] DISCHARGE SUMMARY DISCHARGE DIAGNOSES: 1. Acute hypoxemic respiratory failure. 2. Acute on chronic combined systolic diastolic heart failure. 3. Abnormal nuclear stress test. 4. Mitral regurgitation. 5. Thyroid nodule. 6. Depression and anxiety. 7. History of traumatic brain injury, with cognitive deficits. CONSULTANTS: 1. HOLLIE Logan, [facility]. 2. Dr. Arjun Cat, death surveys coder. IMAGING/PROCEDURES: 1. CT pulmonary angiogram, July 01, 2016, was negative for pulmonary embolism. Small pleural effu sions were noted consistent with pulmonary edema. Superimposed pneumonia is considered less likely, though followup chest CT in 3 months was recommended by the radiologist. In addition, aneurysmal d ilatation of the ascending aorta without dissection was noted, as well as a 2-cm exophytic left thyr oid nodule, for which a thyroid ultrasound is recommended in the outpatient setting. 2. Echocardiogram, July 01, 2016, showed a significantly decreased ejection fraction compared to p revious echo from September of 2012 of 30% to 35%. There is also Doppler evidence for diastolic dysfunct ion. [id number] global hypokinesis of the left ventricle. Moderate dilation of the left at rium. [id number] mitral regurgitation. 3. Myocardial nuclear medicine perfusion scan was suspicious for mild reversible ischemia involving the mid left lateral wall, with global mild hypokinesis, and a calculated ejection fraction of 40%. HISTORY: For details, please see dictated history and physical dated July 01, 2016. In brief, the patient is a 70-year-old female, with a past medical history of nonischemic cardiomyopathy and blakely tolic dysfunction, who previously had a preserved ejection fraction, [facility] with shortness of breath, and dyspnea on exertion. She apparently ran out of her cardiac medi cation, and due to lack of followup with the [facility], these were not refilled. She was admitted to the hospital for further management. HOSPITAL COURSE: The patient was admitted to the telemetry unit. As noted, her ejection fraction h as decreased from 60% to 30%, in the setting of medication noncompliance. She was initially diurese d with IV Lasix. This was transitioned to oral torsemide. She was restarted on aspirin, Coreg, and losartan, in addition to spironolactone. She gently diuresed in the hospital, with improvement of her symptoms. Her abnormal stress test was reviewed with Cardiology, and further invasive testing w as not recommended. She is discharged home with home oxygen, and will have followup labs in 5 days, including a CBC, basic metabolic panel, and BNP, and will plan to follow up with Dr. Cat in the [facility] at [facility] in 1 week. DISPOSITION: Patient is discharged home in stable condition. FOLLOWUP: 1. Dr. Arjun Cat, [facility], in 1 week, with lab 2 days prior to this office visit. 2. Dr. Gutierrez Whitehead, primary care. Primary care followup should include consideration of repeat chest CT in 3 months, as well as a thyroid ultrasound for further evaluation of the incidental findi ng of her thyroid nodule. DISCHARGE MEDICATIONS: Please see Exploretrip for completed and updated outpatient medication list. N ew medications on discharge include aspirin 81 mg p.o. daily, #30, no refills, Coreg 6.25 mg p.o. tw ice daily, #60, no refills, losartan 25 mg p.o. daily, #30, no refills, spironolactone 25 mg p.o. da mariangel, #30, no refills, torsemide 20 mg p.o. daily. She will continue all of her medications as presc ribed, including her Paxil and Klonopin for depression and anxiety. /[id number]/MODL
== END 2016-07-05 13:23 | disposition home or self-care (01) | DRG 291 ==
LOC: F2W 12:48
PROVIDERS: ADMIT Internal Medicine; ATTEND Internal Medicine
DX: I50.23 Acute on chronic systolic (congestive) heart failure (principal); J96.01 Acute respiratory failure with hypoxia; I34.0 Nonrheumatic mitral (valve) insufficiency; E04.1 Nontoxic single thyroid nodule; F41.8 Other specified anxiety disorders; Z87.820 Personal history of traumatic brain injury; T46.90 Poisoning by, adverse effect of and underdosing of unspecified agents primarily affecting the cardiovascular system; Z87.891 Personal history of nicotine dependence; Z82.49 Family history of ischemic heart disease and other diseases of the circulatory system
CPT/HCPCS: 84481-90; 96374; 97166-GO; A9500; G0378; G8987-GO-CI; G8988-GO-CI; G8989-GO-CI; J1200; J2785; Q9967

== ENCOUNTER 2016-12-17 19:48 | Emergency (ER) | payer BC, OTHER ==
[2016-12-17 19:58] VITALS: TEMP 99
--- NOTE | 2016-12-17 20:14 | EDPHY ---
H & P Time Seen by Provider: 12/17/16 20:11 HPI/ROS: Chief complaint. Cough HPI. Patient is 71-year-old female with cough and congestion for 3 days. Runny nose and congestion slight sore throat. Initially a cough that was productive now more dry. No fever. Sick contact of her neighbor. She has a history of CHF and is taking her diuretics. She is concerned that this would be an early manifestation of CHF. She really has minimal ankle swelling and no shortness of breath. She says her lungs feel full at times but otherwise no chest discomfort ROS Constitutional. no fever/chills, no weakness Eyes. no problems with vision ENT. Congestion Cardiovascular. no chest pain Respiratory. No shortness of breath however cough Abdominal. no abdominal pain, no nausea/vomiting, no diarrhea . no problems urinating MS. no calf pain/swelling, no neck/back pain, no joint pain Skin. no rash Lymph. no swollen glands Neuro. no headache, no dizziness, no difficulty walking or with speech Past Medical/Surgical History: Past medical history is significant for depression, anxiety, hypertension, mitral regurgitation, TBI, CHF Social History: Single, nonsmoker, no alcohol Smoking Status: Former smoker Physical Exam: General Appearance: Alert well-developed female mild distress vital signs are stable Eyes: Pupils equal and round no pallor or injection. ENT, tympanic membranes normal. Pharynx without injection Respiratory: No retractions. Mild inspiratory expiratory rhonchi. No rales present Cardiovascular: Regular rate and rhythm. Gastrointestinal: Abdomen is soft and nontender, no masses, bowel sounds normal. Neurological: Awake and alert, sensory and motor exams grossly normal. Skin: Warm and dry, no rashes. Musculoskeletal: Neck is supple nontender. Extremities symmetrical, full range of motion. Trace pedal edema Psychiatric: Patient is oriented X 3, there is no agitation. Constitutional: Initial Vital Signs Temperature (C) 37.2 C 12/17/16 19:55 Heart Rate 78 12/17/16 19:55 Respiratory Rate 20 12/17/16 19:55 Blood Pressure 152/84 H 12/17/16 19:55 O2 Sat (%) 96 12/17/16 19:55 O2 Delivery Mode Room Air Allergies/Adverse Reactions: Gadolinium-Containing Contrast Medi Allergy (Verified 12/17/16 19:58) Sulfa (Sulfonamide Antibiotics) Allergy (Verified 12/17/16 19:58) Home Medications: Medication Instructions Recorded PARoxetine HCL [Paxil 20mg (*)] 50 mg PO DAILY 07/01/16 clonazePAM [Klonopin (*)] 0.5 mg PO BID PRN 07/01/16 Aspirin [Aspirin 81mg (*)] 81 mg PO DAILY #30 tab.chew 07/05/16 Carvedilol [Coreg (*)] 6.25 mg PO BIDMEAL #60 tab 07/05/16 Losartan Potassium [Cozaar 25 mg 25 mg PO DAILY #30 tab 07/05/16 (*)] Spironolactone [Aldactone 25 MG 25 mg PO DAILY #30 tab 07/05/16 (*)] Torsemide [Demadex] 20 mg PO DAILY AT 10AM #30 tab 07/05/16 Azithromycin [Zithromax] 250 mg PO DAILY #6 tab 12/17/16 Medical Decision Making Procedures: [facility] ED Course/Re-evaluation: Re-evaluation at 9:20 p.m. patient is feeling better. Listening to her lungs shows better air movement. She is speaking in full sentences. She and I discussed imaging study results, treatment plan including criteria for return importance of follow-up and further evaluation. She expresses understanding and agreement Differential Diagnosis: I think this is consistent with bronchitis. She does have slight increased markings in the right lower lobe but no obvious consolidation. Patient was concerned about congestive heart failure but this does not appear to be congestive heart failure. - Data Points Medications Given: Discontinued Medications Albuterol/Ipratropium (Duoneb) 3 ml IH EDNOW ONE Stop: 12/17/16 20:31 Last Admin: 12/17/16 20:34 Dose: 3 ml Departure - Departure Disposition: Home, Routine, Self-Care Clinical Impression: Acute bronchitis Qualifiers: Bronchitis organism: unspecified organism Qualified Code(s): J20.9 - Acute bronchitis, unspecified Condition: Good Instructions: Acute Bronchitis (ED) Additional Instructions: Continue regular medications. Use the inhaler using 2 puffs every 4-6 hours to help with breathing and cough. Zithromax is antibiotic and fill the prescription tomorrow to take the remainder of your course. Return for worsening breathing. Recheck by Dr. Whitehead in 2-3 days if not improving Referrals: Gutierrez Whitehead MD [Primary Care Provider] - 2-3 days, if not improved Prescriptions: Azithromycin [Zithromax] 250 mg PO DAILY #6 tab
[2016-12-17] MEDS ORDERED: IPRATROPIUM/ALBUTEROL 3 ML DEYVIAL IH ONE (20:30)
[2016-12-17] MEDS ORDERED: ALBUTEROL INH PREPACK MDI TAKEHOME ONE (21:26)
[2016-12-17] MEDS: AZITHROMYCIN 250 MG TAB PO ONE ×2 (21:30→21:38)
[2016-12-17 21:49] VITALS: BP 145/87; PULSE 76; RESP 16; O2SAT 93
== END 2016-12-17 21:48 | disposition home or self-care (01) ==
DX: J20.9 Acute bronchitis, unspecified (principal); I11.0 Hypertensive heart disease with heart failure; I50.9 Heart failure, unspecified; Z79.82 Long term (current) use of aspirin; Z87.891 Personal history of nicotine dependence

== ENCOUNTER → 2017-06-09 | Outpatient (CLI) | payer BC, OTHER | LOC: FIMAGING 11:51 | PROVIDERS: ATTEND Family Medicine | DX: J98.4 Other disorders of lung (principal); I50.22 Chronic systolic (congestive) heart failure ==